=== PATIENT | female | born 1995 | race Two or more races ===

== ENCOUNTER 2021-06-17 08:00 | Outpatient (CLI) | payer OTHER | END 2021-06-17 23:59 | disposition home or self-care (01) | LOC: LAB 08:00 | PROVIDERS: ATTEND Nurse Practitioner | DX: R05.3 Chronic cough (principal); Z20.822 Contact with and (suspected) exposure to COVID-19 ==

== ENCOUNTER 2021-11-25 08:31 | Outpatient (CLI) | payer OTHER, MEDICAID ==
--- NOTE | 2021-11-26 09:48 | Ultrasound Report ---
LIMITED ULTRASOUND OF RIGHT BREAST: 11/25/2021 CLINICAL: Palpable right breast lump at 8 o'c 2 cmfn. Rt breast pain 9 o'c 7 cmfn. No prior exams were available for comparison. Color flow and real-time ultrasound of the right breast 8-9 o'clock region were performed. Payton scal e images of the real-time examination were reviewed. There is a probable 0.5 cm x 0.3 cm x 0.6 cm oval fibroadenoma with a circumscribed margin in the rig ht breast at 8 o'clock posterior depth 2 cm from the nipple. IMPRESSION: PROBABLY BENIGN The probable 0.5 cm x 0.3 cm x 0.6 cm oval fibroadenoma in the right breast is probably benign. A fo llow-up ultrasound in 6 months is recommended to ensure stability. A follow-up right ultrasound in 6 months is recommended to demonstrate stability. This exam was interpreted at Station ID: [id number]. Electronically Signed By: Rob Ramirez acr/:11/25/2021 09:53:36 Ultrasound BI-RADS: 3 Probably benign BI-RADS CATEGORY: (3) - 3 Ultrasound [id number] 6 month follow-up LATERALITY: (R)
== END 2021-11-25 08:32 | disposition home or self-care (01) ==
LOC: DI 08:31
PROVIDERS: ATTEND Nurse Practitioner
DX: N63.13 Unspecified lump in the right breast, lower outer quadrant (principal)

== ENCOUNTER 2021-12-02 08:56 | Outpatient (CLI) | payer OTHER, MEDICAID ==
[2021-12-02 12:01] LABS: BASOPHILS # (AUTO) 0.1 10^3/uL (0.0-0.1); BASOPHILS % (AUTO) 1.1 %; EOSINOPHILS # (AUTO) 0.2 10^3/uL (0.0-0.7); EOSINOPHILS % (AUTO) 3.7 %; HCT - HEMATOCRIT 39.9 % (37.0-47.0); HGB - HEMOGLOBIN 13.4 g/dL (12.0-16.0); LYMPHOCYTES # (AUTO) 2.2 10^3/uL (1.5-3.5); LYMPHOCYTES % (AUTO) 40.9 %; MEAN CORPUSCULAR HEMOGLOBIN 29.9 pg (27.0-31.0); MEAN CORPUSCULAR HGB CONC 33.6 g/dL (32.0-36.0); MEAN CORPUSCULAR VOLUME 89.1 fL (81.0-99.0); MEAN PLATELET VOLUME 10.2 fL (7.9-10.8); MONOCYTES # (AUTO) 0.4 10^3/uL (0.0-1.0); MONOCYTES % (AUTO) 7.9 %; NEUTROPHILS # (AUTO) 2.5 10^3/uL (1.5-6.6); NEUTROPHILS % (AUTO) 46.2 %; PLT - PLATELET COUNT 311 10^3/uL (130-450); RED BLOOD COUNT 4.48 10^6/uL (4.20-5.40); RED CELL DISTRIBUTION WIDTH 12.6 % (12.0-15.0); WHITE BLOOD COUNT 5.4 x10^3/uL (4.8-10.8)
[2021-12-02 12:41] LABS: ALBUMIN 3.6 g/dL (3.2-5.5); ALBUMIN/GLOBULIN RATIO 1.2 (1.0-2.2); ALKALINE PHOSPHATASE 69 IU/L (42-121); ALT ALANINE AMINOTRANSFERASE 28 IU/L (10-60); AMYLASE 36 U/L (28-100); AST ASPARTATE AMINOTRANSFERASE 25 IU/L (10-42); BILIRUBIN,TOTAL 0.5 mg/dL (0.2-1.0); BUN - BLOOD UREA NITROGEN 13 mg/dL (6-20); CALCIUM 9.4 mg/dL (8.5-10.3); CARBON DIOXIDE - CO2 26 mmol/L (21-32); CHLORIDE 104 mmol/L (101-111); CHOL/HDL RATIO 2.9 (<4.4); CHOLESTEROL 212 mg/dL; CREATININE 0.7 mg/dL (0.4-1.0); GFR - MDRD 100 (>89); GLUCOSE 91 mg/dL (70-100); HDL CHOLESTEROL 73 mg/dL; LDL CHOLESTEROL,CALCULATED 126 mg/dL; LDL/HDL RATIO 1.7 (<4.4); LIPASE 34 U/L (22-51); POTASSIUM 4.1 mmol/L (3.5-5.0); SODIUM 138 mmol/L (135-145); TOTAL PROTEIN 6.7 g/dL (6.7-8.2); TRIGLYCERIDES 65 mg/dL; VLDL CHOLESTEROL 13 mg/dL
== END 2021-12-02 08:57 | disposition home or self-care (01) ==
LOC: LAB.N 08:56
PROVIDERS: ATTEND Nurse Practitioner
DX: R53.83 Other fatigue (principal); Z13.220 Encounter for screening for lipoid disorders; R14.0 Abdominal distension (gaseous); Z87.19 Personal history of other diseases of the digestive system
CPT/HCPCS: 36415; 80053; 80061; 82150; 83690; 83721; 85025

== ENCOUNTER 2022-04-06 08:00 | Outpatient (CLI) | payer MEDICAID, OTHER ==
--- NOTE | 2022-04-06 17:55 | XRAY Report ---
PROCEDURE: Finger(s) LT INDICATIONS: L THUMB PX TECHNIQUE: AP hand, 2 views of the first finger(s) acquired. COMPARISON: None. FINDINGS: Bones: No fractures or dislocations. No suspicious bony lesions. Soft tissues: No suspicious soft tissue calcifications. IMPRESSION: No acute osseous amenities. If clinical symptoms persist, a follow-up exam in 7-10 days or advanced i maging such as CT or MRI is recommended. Reviewed by: Robel Crum MD on 04/06/2022 5:53 PM PDT Approved by: Robel Crum MD on 04/06/2022 5:53 PM PDT Station ID: [id number]
== END 2022-04-06 23:59 | disposition home or self-care (01) ==
LOC: DI.N 08:00
PROVIDERS: ATTEND Family Medicine
DX: M79.645 Pain in left finger(s) (principal)

== ENCOUNTER 2022-06-15 13:22 | Outpatient (CLI) | payer MEDICAID ==
--- NOTE | 2022-06-16 10:59 | Ultrasound Report ---
LIMITED ULTRASOUND OF RIGHT BREAST: 06/15/2022 CLINICAL: Short term follow up of the right breast. Comparison is made to exam dated: 11/25/2021 ultrasound - [facility]. Color flow and real-time ultrasound of the right breast 8 o'clock region were performed. Payton scale images of the real-time examination were reviewed. There is a possible 0.5 cm x 0.6 cm x 0.3 cm oval fibroadenoma with a circumscribed margin in the rig ht breast at 8 o'clock middle depth 2 cm from the nipple. This abnormality is not significantly qureshi ged. IMPRESSION: PROBABLY BENIGN The possible 0.5 cm x 0.6 cm x 0.3 cm oval fibroadenoma in the right breast is probably benign. A fo llow-up ultrasound in 6 months is recommended. A follow-up right ultrasound in 6 months is recommended to demonstrate stability. This exam was interpreted at Station ID: [id number]. Electronically Signed By: Keegan thomas/aileen:06/15/2022 13:57:47 Ultrasound BI-RADS: 3 Probably benign BI-RADS CATEGORY: (3) - 3 Ultrasound [id number] 6 month follow-up LATERALITY: (R)
== END 2022-06-15 13:23 | disposition home or self-care (01) ==
LOC: DI 13:22
PROVIDERS: ATTEND Nurse Practitioner
DX: N63.12 Unspecified lump in the right breast, upper inner quadrant (principal)